=== PATIENT | male | born 1945 ===

== ENCOUNTER → 2019-04-14 18:36 | Outpatient (ROUT) | payer BC, SELFPAY ==
[2019-04-14 19:44] LABS: Add Manual Diff / Slide Review NO; Basophils Absolute Auto 100 /uL (0-100); Basophils Percent Auto 0.6 % (0-2); Eosinophils Absolute Auto 100 /uL (0-450); Eosinophils Percent Auto 1.4 % (2-4); Hematocrit 47.5 % (41-53); Hemoglobin 15.8 g/dL (13.5-17.5); Lymphocytes Absolute Auto 2900 /uL (1100-4500); Lymphocytes Percent Auto 28.4 % (25-40); Mean Corpuscular HGB Conc 33.3 % (30-36); Mean Corpuscular Hemoglobin 29.6 PG (26-34); Mean Corpuscular Volume 89.1 fL (80-100); Monocytes Absolute Auto 900 /uL (0-900); Monocytes Percent Auto 8.7 % (3-14); Neutrophils Absolute Auto 6100 /uL (1500-7000); Neutrophils Percent Auto 60.9 % (50-75); Platelet Count 256 X10^3/uL (150-400); Red Blood Cell Count 5.33 X10^6/uL (4.5-5.9); Red Cell Distribution Width 14.4 % (11.6-14.8); White Blood Cell Count 10.1 X10^3/uL (4.5-11.0)
[2019-04-14 20:00] LABS: Alanine Aminotransferase 41 IU/L (<50); Albumin 4.6 g/dL (3.5-5.0); Albumin Globulin Ratio 1.4 (1.0-2.8); Alkaline Phosphatase 82 U/L (38-126); Aspartate Aminotransferase 33 IU/L (17-59); BUN Creatinine Ratio 38.9 (6-22); Bilirubin Total 0.5 mg/dL (0.2-1.3); Blood Urea Nitrogen 35 mg/dL (9-20); Calcium 9.6 mg/dL (8.4-10.2); Carbon Dioxide 29 mmol/L (22-32); Chloride 102 mmol/L (98-107); Cholesterol 218 mg/dL (140-199); Estimated Glomerular Filt Rate > 60.0 mL/min (>60); Globulin 3.3 g/dL (1.7-4.1); Glucose 127 mg/dL (80-110); HDL Cholesterol 35 mg/dL (40-60); HEMOLYSIS < 15 (0-50); LDL Cholesterol Calculated 160 mg/dL (<100); Sodium 141 mmol/L (137-145); Total Protein 7.9 g/dL (6.3-8.2); Triglycerides 114 mg/dL (35-150)
[2019-04-14 20:26] LABS: Hemoglobin A1C% w Est Avg Glu 6.2 % (4.0-6.0)
== END ==
PROVIDERS: Family Provider Internal Medicine; PCP Internal Medicine; Visit Provider Physician Assistant
DX: E11.9 Type 2 diabetes mellitus without complications (principal); I10 Essential (primary) hypertension; E78.5 Hyperlipidemia, unspecified
CPT/HCPCS: 80053; 80061; 83036; 85025

== ENCOUNTER → 2019-10-23 19:09 | Outpatient (ROUT) | payer BC, SELFPAY ==
[2019-10-23 19:31] LABS: Add Manual Diff / Slide Review NO; Basophils Absolute Auto 100 /uL (0-100); Basophils Percent Auto 0.9 % (0-2); Eosinophils Absolute Auto 100 /uL (0-450); Eosinophils Percent Auto 1.2 % (2-4); Hemoglobin 15.1 g/dL (13.5-17.5); Lymphocytes Absolute Auto 2100 /uL (1100-4500); Lymphocytes Percent Auto 24.8 % (25-40); Mean Corpuscular HGB Conc 32.7 % (30-36); Mean Corpuscular Volume 88.7 fL (80-100); Monocytes Absolute Auto 800 /uL (0-900); Neutrophils Absolute Auto 5400 /uL (1500-7000); Neutrophils Percent Auto 64.1 % (50-75); Platelet Count 259 X10^3/uL (150-400); Red Blood Cell Count 5.19 X10^6/uL (4.5-5.9); Red Cell Distribution Width 14.4 % (11.6-14.8); White Blood Cell Count 8.5 X10^3/uL (4.5-11.0)
[2019-10-23 19:37] LABS: Alanine Aminotransferase 29 IU/L (<50); Albumin 4.3 g/dL (3.5-5.0); Albumin Globulin Ratio 1.4 (1.0-2.8); Alkaline Phosphatase 81 U/L (38-126); Aspartate Aminotransferase 30 IU/L (17-59); BUN Creatinine Ratio 23.9 (6-22); Bilirubin Total 0.7 mg/dL (0.2-1.3); Blood Urea Nitrogen 22 mg/dL (9-20); Calcium 9.5 mg/dL (8.4-10.2); Carbon Dioxide 27 mmol/L (22-32); Chloride 100 mmol/L (98-107); Cholesterol 194 mg/dL (140-199); Estimated Glomerular Filt Rate > 60.0 mL/min (>60); Glucose 113 mg/dL (80-110); HDL Cholesterol 36 mg/dL (40-60); HEMOLYSIS < 15 (0-50); LDL Cholesterol Calculated 132 mg/dL (<100); Potassium 4.5 mmol/L (3.4-5.1); Sodium 135 mmol/L (137-145); Total Protein 7.3 g/dL (6.3-8.2); Triglycerides 129 mg/dL (35-150)
== END ==
PROVIDERS: Family Provider Internal Medicine; PCP Internal Medicine; Visit Provider Physician Assistant
DX: E11.9 Type 2 diabetes mellitus without complications (principal); E78.5 Hyperlipidemia, unspecified
CPT/HCPCS: 80053; 80061; 85025

== ENCOUNTER → 2021-08-04 12:50 | Outpatient (CLI) | payer BC, SELFPAY ==
--- NOTE | 2021-08-10 14:13 | DIAB.MNT ---
Initial Diabetes Medical Nutrition Therapy Assessment Name: Justin Sherman Date: 08/04/21 Time: 1-215p Dx: Type II Diabetes Provider: Nadia Anderson presents today regarding T2DM diagnosis. He is accompanied by his , Maribell. States he is unsure of HgA1c. RD/CDCES requested recent labs indicating 7.1% in 06/2021. Endorses wt gain and recent covid infection, which he feels plays a role in BG. Reports he is mostly vegetarian with some fish intake. Is quite concerned about glycemic index, limited knowledge about label reading for net carbs or carb counting. Limited cooked veggies for fear of increased glycemic index vs raw. Has been avoiding sweets, ie cookies, ice cream, baked beans. Prior to diagnosis, was eating 2c baked beans on salad. High saturated fat intake likely due to low carb vegetarian options. 06/2021 lipids indicates elevated total cholesterol (237) and LDL (165). Diet Recall: wake 11a 12p: protein shake (10-20g CHO) sn: nuts prn 5-7p: veggies, impossible burger or dog with coconut wrap, keto brownie 11p: smoothie or nuts (0-20g CHO) Beverages: 48oz water or more, tea Anthropometrics: Ht: 5'11 Wt: 198# Weight history: UBW reported 185# Physical Activity: daily walks 30 mins, stationary bike 1-2x per week Self-Monitoring Blood Glucose: last time checked BG was 2003. Interested in trying again. Diabetes Medications: Pertinent Labs: 06/2021 HgA1c 7.1% total cholesterol: 237 LDL: 165 HDL: 48 T Past Medical History: per referral: T2DM, pure hypercholesterolemia, hemiplegia, cerebrovascular disease, HLD, HTN, MARK ANTHONY on Cpap, ICH, Dysarthria, h/p hemorrhagic stroke, vit D deficiency Nutrition Rx: Carbohydrates: Meal:45g Snack:15-30g Nutrition Diagnosis: - Predicted excessive saturated fat intake r/t nutrition knowledge deficit, vegetarian options low in carb and high in sat fat aeb diet recall and elevated cholesterol - Nutrition and food related knowledge deficit r/t never attended DSME or MNT aeb pt report - Self monitoring deficit r/t no supplies aeb pt report Intervention: This participant was very receptive. Provided appropriate educational handouts. Discussed the following topics: Completed intake assessment. Discussed barriers to care. Pathophysiology of T2DM HgA1c, its correlation to blood glucose numbers, and rationale for goal Importance of self-monitoring, how often, and when to check. Suggested checking at different times to evaluate meals Plate Method, impact of macronutrients on blood sugar, meal timing, carbohydrate counting, pairing macronutrients and spreading out carbohydrates for better blood glucose management Recommended servings for carbohydrates at meals and snacks Heart health nutrition Saturated fat in food choices label reading Role of physical activity and following provider guidelines for safety Created SMART goals for patient self-care and success. Goals: Try low carb tortillas Discuss SMBG rx with provider Enjoy stir chapman / cooked veggies Keep baked beans to 0.5-1c per serving Follow-up: MAUDE PENNY follow-up in October. Offered a sooner follow-up to review BG and goals, but Justin would like to return in 2 months. Discussed recommendation for follow-up in 2-4 weeks after initial nutrition visit and offered DSME classes. He declined at this time and would like to have more time prior to f/u. Alexia Parsons RDN, [facility] Certified Diabetes Care and Neurosurgery Spine Physician P: [phone] Thank you for this referral
== END ==
PROVIDERS: Family Provider Internal Medicine; PCP Physician Assistant; Referring Provider Physician Assistant; Visit Provider Physician Assistant
DX: E11.9 Type 2 diabetes mellitus without complications (principal); E78.5 Hyperlipidemia, unspecified; G81.90 Hemiplegia, unspecified affecting unspecified side; Z71.3 Dietary counseling and surveillance
CPT/HCPCS: 97802

== ENCOUNTER → 2024-04-24 16:25 | Outpatient (CLI) | payer OTHER, SELFPAY ==
--- NOTE | 2024-04-24 16:28 | DI.US.S_ITS ---
PROCEDURE: US RENAL COMPLETE INDICATIONS: H/O NEPHROLITHIASIS/ACUTE RENAL INSUFF TECHNIQUE: Real-time scanning was performed of the kidneys and bladder, with image documentation. COMPARISON: None. FINDINGS: Kidneys: Kidneys are normal in size. Right kidney measures 11.7 cm long; left kidney measures 10.8 cm long. Right renal cortical thickness is 1.2 cm; left renal cortical thickness is 1.5 cm. Renal cortical echotexture is normal. No hydronephrosis or nephrolithiasis. No suspicious solid mass lesions. 4.8 cm right renal cyst Bladder: Pre-void bladder volume is 41 mL. Post-void residual is 59 mL. Pre-void images demonstrate no intraluminal masses or stones. On pre-void images, bilateral ureteral jets are noted with color Doppler interrogation. (Of note, ureteral jets may not be detectable in up to 25% of cases due to insufficient differences in specific gravity between ureteral and bladder urine). Miscellaneous: No free pelvic fluid. IMPRESSION: Unremarkable renal ultrasound. Incidental urinary bladder postvoid residual, 59 cc Approved by: Christopher Grace M.D. on 04/25/2024 at 17:16
== END ==
PROVIDERS: Family Provider Internal Medicine; PCP Physician Assistant; Referring Provider Family Medicine; Visit Provider Family Medicine
DX: N20.0 Calculus of kidney (principal); N28.9 Disorder of kidney and ureter, unspecified; N28.1 Cyst of kidney, acquired
CPT/HCPCS: 76770